=== PATIENT | female | born 1985 | race African-American/Black ===

== ENCOUNTER 2023-10-11 08:24 | Emergency (ER) | payer OTHER ==
[~2023-10-11] VITALS: Ht 157.5 cm; Wt 54.5 kg
[~2023-10-11 08:24] MED LIST: AMOXICILLIN 50500 MG PO; BACTROBAN2% TP; CEPHALEXIN500 M1; HYDROXYZINE HCL25 MG PO; MEDROL 4MG DOSPA4 MG PO; PERCOCET 325 MG1 TA2 PO; PRENATAL VITAMI1 TA5 PO; VALTREX
[2023-10-11 08:28] VITALS: TEMP 98.2
[2023-10-11] MEDS ORDERED: oxyCODONE/Acetaminophen 5-325 MG TAB PO ONE (09:00)
[2023-10-11] MEDS ORDERED: NORCO 325 MG-51 TAB PO (09:11)
[2023-10-11] MEDS ORDERED: CRUTCHES MC (09:16)
[2023-10-11 09:23] VITALS: BP 121/71; PULSE 88
== END 2023-10-11 09:28 | disposition home or self-care (01) ==
LOC: COL.ER 08:24
DX: S93.601A Unspecified sprain of right foot, initial encounter (principal); S93.401A Sprain of unspecified ligament of right ankle, initial encounter; X50.1XXA Overexertion from prolonged static or awkward postures, initial encounter; Y93.39 Activity, other involving climbing, rappelling and jumping off